=== PATIENT | female | born 1945 | race Two or more races ===

== ENCOUNTER 2017-12-14 16:39 | Outpatient (CLI) | payer MEDICARE, OTHER ==
--- NOTE | 2017-12-14 17:57 | Diagnostic Imaging Report ---
Indication: Cough Technique: 2 views of the chest Comparison: None Findings: There is some linear atelectasis or scarring the left lung base. The heart size is normal. The aorta is tortuous calcified and ectatic. There is spinal fusion hardware in the lumbar spine. No evidence of prior CABG. The bones are osteoporotic Impression: No acute process. Findings as noted
== END 2017-12-14 18:39 | disposition home or self-care (01) ==
LOC: RAD 16:39
DX: R50.9 Fever, unspecified (principal); R05 Cough; Z98.1 Arthrodesis status
CPT/HCPCS: 71046